=== PATIENT | female | born 1985 | race African-American/Black ===

== ENCOUNTER 2021-05-10 10:18 | Day surgery (SDC) | payer OTHER ==
[2021-05-02 14:59] VITALS: BMI 26.6
[2021-05-10] MEDS ORDERED: LIDOCAINE HCL 2% (20ML MULTI-DOSE VIAL) ONE (12:37)
[2021-05-10] MEDS ORDERED: MIDAZOLAM HCL 2 MG/2 ML SINGLE DOSE VIAL ONE (12:56)
[2021-05-10] MEDS ORDERED: PROPOFOL 20 ML ONE (12:56)
[2021-05-10] MEDS ORDERED: BUPIVACAINE HCL/PF 0.25% (2.5MG/ML) 10 ML VIAL ONE (13:29)
[2021-05-10] MEDS ORDERED: BUPIVACAINE HCL/PF 0.25% (2.5MG/ML) 10 ML VIAL IJ ONE (13:32)
[2021-05-10 13:59] VITALS: BP 119/80; TEMP 98.1
[2021-05-10 14:23] VITALS: PULSE 79
[2021-05-10] MEDS ORDERED: oxyCODONE HCL 5 MG TABLET PO PRN (15:44)
[2021-05-10] MEDS ORDERED: ONDANSETRON 4 MG/2 ML VIAL IVPUSH PRN (15:44)
[2021-05-10] MEDS ORDERED: ACETAMINOPHEN 325 MG TABLET (FP) PO PRN (15:44)
[2021-05-10] MEDS ORDERED: LACTATED RINGERS SOLUTION 1,000 ML IV SCH (15:45)
== END 2021-05-10 14:57 | disposition home or self-care (01) ==
LOC: FASU 10:18
PROVIDERS: ATTEND Orthopaedic Surgery Hand Surgery
PROC: 0LB70ZZ Excision of Right Hand Tendon, Open Approach (ICD-10-PCS; principal; 2021-05-10 13:10)
DX: D48.1 Neoplasm of uncertain behavior of connective and other soft tissue (principal)
CPT/HCPCS: 84703; 88304-TC